=== PATIENT | female | born 1985 ===

== ENCOUNTER → 2022-10-18 | Outpatient (CLI) | payer OTHER | END | disposition home or self-care (01) | LOC: LAB SHORT 17:07 | DX: R31.9 Hematuria, unspecified (principal) | CPT/HCPCS: 87086 ==

== ENCOUNTER → 2023-03-14 | Outpatient (CLI) | payer OTHER ==
[2023-03-15 15:07] LABS: HPV 16 Negative (Negative); HPV 18 Negative (Negative); HPV OTHER HR TYPES Negative (Negative)
== END | disposition home or self-care (01) ==
LOC: LAB SHORT 11:25 → LAB 11:25
PROVIDERS: Advanced Practice Midwife
DX: Z01.419 Encounter for gynecological examination (general) (routine) without abnormal findings (principal)
CPT/HCPCS: 87624; G0145

== ENCOUNTER → 2023-08-21 | Outpatient (CLI) | payer OTHER | LOC: LAB 13:28 → LAB SHORT 13:28 | DX: R07.9 Chest pain, unspecified (principal) | CPT/HCPCS: 84484; 85379; 86141 ==